=== PATIENT | female | born 1940 | race Caucasian/White ===

== ENCOUNTER 2022-04-16 09:14 | Emergency (ER) | payer OTHER ==
[2022-04-16 10:10] LABS: BASOPHIL 0.4 % (0-2); HCT 41.9 % (37.0-47.0); HGB 13.4 g/dl (12.5-16.0); LYMPHOCYTE 9.5 % (15-48); MCH 29.7 pg (25.0-31.0); MCV 92.9 fL (78.0-100.0); MONOCYTE 7.8 % (0-12); MPV 8.9 fL (6.0-9.5); NEUTROPHIL 80.7 % (41-80); NRBC 0; PLT 297 K/uL (150-400); RBC 4.51 M/uL (4.20-5.40); WBC 14.2 K/uL (4.0-10.5)
[2022-04-16 10:37] LABS: ALBUMIN 3.8 g/dL (3.4-5.0); BILIRUBIN - TOTAL 0.6 mg/dL (0.2-1.0); BUN/CREAT RATIO (CALC) 17.6 RATIO; CREATININE 0.91 mg/dL (0.51-0.95); GLOBULIN (CALCULATION) 3.2 g/dL; MAGNESIUM 2.2 mg/dL (1.8-2.4); POTASSIUM 4.1 mmol/L (3.5-5.1)
[2022-04-16 10:44] LABS: BILIRUBIN NEGATIVE (NEGATIVE); BLOOD 3+ Ery/uL (NEGATIVE); CLARITY CLOUDY (CLEAR); COLOR YELLOW (YELLOW); GLUCOSE (U) NORMAL (NORMAL); LEUKOCYTES 3+ Leu/uL (NEGATIVE); NITRITE NEGATIVE (NEGATIVE); PROTEIN 1+ mg/dL (NEGATIVE); SPECIFIC GRAVITY 1.025 (1.001-1.030); UROBILINOGEN 0.2 mg/dL (0.2-1.0)
[2022-04-16 11:00] LABS: URINARY WBC TNTC
[2022-04-16 11:02] LABS: URINARY RBC TNTC
[2022-04-16] MEDS ORDERED: CEFDINIR300 MG PO (14:41)
[2022-04-16] MEDS ORDERED: PYRIDIUM200 MG PO (14:41)
== END 2022-04-16 15:08 | disposition home or self-care (01) ==
LOC: FER 09:14
PROVIDERS: Emergency Medicine
DX: N30.90 Cystitis, unspecified without hematuria (principal); K59.09 Other constipation; I10 Essential (primary) hypertension; Z88.0 Allergy status to penicillin
CPT/HCPCS: 36415; 71250; 80053; 81001; 83605; 83735; 84145; 85025; 87040; 87076; 87088; 87186; J0696; J7030